=== PATIENT | male | born 1980 | race Caucasian/White ===

== ENCOUNTER 2020-01-06 21:25 | Emergency (ER) | payer OTHER, MEDICAID ==
[~2020-01-06] VITALS: Ht 170.2 cm; Wt 77.1 kg
[2020-01-06 21:50] VITALS: BP_SYST 119
--- NOTE | 2020-01-06 21:55 | NUR ---
Patient to ER bed 4 to gown for evaluation. Side rails up.
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
--- NOTE | 2020-01-06 21:56 | NUR ---
ER at bedside examining patient.
[2020-01-06] MEDS ORDERED: KETOROLAC TROMETHAMINE 30 MG VIAL IM ONE (22:00)
--- NOTE | 2020-01-06 22:23 | NUR ---
X-ray at bedside.
[2020-01-06 23:15] VITALS: BP_SYST 119
--- NOTE | 2020-01-06 23:15 | NUR ---
Patient given written and verbal discharge instructions and verbalizes understanding. DR. SHEKHAR DELEON MD discussed with patient the results and treatment provided. Patient in stable condition. ID arm band removed. Rx of NAPROSYN AND FLEXIRIL given. Patient educated on pain management and to follow up with PMD. Pain Scale 0/10. Opportunity for questions provided and answered. Medication side effect fact sheet provided.
== END 2020-01-06 23:15 | disposition home or self-care (01) ==
LOC: SED 21:25
DX: S80.02XA Contusion of left knee, initial encounter (principal); S50.812A Abrasion of left forearm, initial encounter; V49.40XA Driver injured in collision with unspecified motor vehicles in traffic accident, initial encounter; Y93.89 Activity, other specified; Y92.89 Other specified places as the place of occurrence of the external cause; Y99.8 Other external cause status
CPT/HCPCS: 71045; 73090; 73560; 96372; 99284; J1885